=== PATIENT | male | born 1980 | race Caucasian/White ===

== ENCOUNTER 2019-02-26 07:31 | Emergency (ER) | payer MEDICAID ==
[~2019-02-26] VITALS: Ht 177.8 cm; Wt 109.1 kg
[2019-02-26 07:38] VITALS: Ht 177.8 cm; Wt 109.1 kg
[2019-02-26] MEDS ORDERED: SEROQUEL50 MG PO (07:39)
[2019-02-26] MEDS ORDERED: LITHIUM CARBON150 MG PO (07:39)
[2019-02-26] MEDS ORDERED: HYDROXYZINE HCL50 MG PO (07:40)
[2019-02-26 08:02] LABS: BASOPHILS 0.6 % (0-2); EOSINOPHILS 3.2 % (0-7); HEMATOCRIT 44.1 % (42.0-54.0); HEMOGLOBIN 15.6 g/dL (13.5-17.5); IMMATURE GRANULOCYTES 1.8 % (0-5); LYMPHOCYTES 30.5 % (15-50); MCH 29.2 pg (26.0-34.0); MCHC 35.4 g/dL (31.0-37.0); MCV 82.6 fL (80.0-100.0); NEUTROPHILS 57.9 % (40-80); PLATELET COUNT 221 10x3/uL (130-400); RBC 5.34 10x6/uL (4.20-6.10); RDW 15.7 % (11.5-14.5); WBC 8.9 10x3/uL (4.8-10.8)
[2019-02-26 08:18] LABS: APPEARANCE CLEAR (CLEAR); BACTERIA FEW /hpf (NONE SEEN); BILIRUBIN NEGATIVE (NEGATIVE); COLOR YELLOW (YELLOW); EPITHELIAL CELLS 0-5 /hpf (0-5); GLUCOSE NEGATIVE (NEGATIVE); HYALINE CAST OCC /lpf (NONE SEEN); KETONE NEGATIVE (NEGATIVE); MUCUS >1+ /lpf (NONE SEEN); NITRITE NEGATIVE (NEGATIVE); PROTEIN TRACE mg/dL (NEGATIVE); SPECIFIC GRAVITY 1.015 (1.005-1.020); UROBILINOGEN NORMAL (NORMAL); WHITE CELLS - URINE 0-5 /hpf (0-5)
[2019-02-26 08:19] LABS: RED CELLS - URINE RARE /hpf (0-5)
[2019-02-26 08:21] LABS: ALBUMIN 3.6 g/dL (3.4-5.0); ANION GAP 13.2 mmol/L (8-16); BILIRUBIN - TOTAL 0.44 mg/dL (0.2-1.3); CALCIUM 8.6 mg/dL (8.5-10.1); CARBON DIOXIDE 25.3 mmol/L (21.0-32.0); CREATININE - SERUM 1.2 mg/dL (0.6-1.3); POTASSIUM - SERUM 3.5 mmol/L (3.5-5.1)
[2019-02-26 09:11] LABS: UDS - AMPHET NEGATIVE QUAL (NEGATIVE); UDS - BARB NEGATIVE QUAL (NEGATIVE); UDS - BENZO NEGATIVE QUAL (NEGATIVE); UDS - COCAINE NEGATIVE QUAL (NEGATIVE); UDS - OPIATE NEGATIVE QUAL (NEGATIVE); UDS - PCP NEGATIVE QUAL (NEGATIVE); UDS - THC NEGATIVE QUAL (NEGATIVE)
--- NOTE | 2019-02-26 10:08 | NUR ---
DR. HAMMER NOTIFIED AND 1:1 SITTER OBSERVATION ORDERED. NOTIFIED CHARGE NURSE AND ATTENDING IN REGARDS TO ASSESSMENT FINDINGS. RESOURCES GIVEN AND SAFETY PLAN INITIATED.
[2019-02-26 13:59] VITALS: BP 141/92
== END 2019-02-26 14:01 ==
LOC: D.ER 07:31
PROVIDERS: Emergency Medicine
DX: F60.3 Borderline personality disorder (principal); F31.9 Bipolar disorder, unspecified; E74.39 Other disorders of intestinal carbohydrate absorption; R45.851 Suicidal ideations

== ENCOUNTER 2019-07-10 15:35 | Emergency (ER) | payer MEDICAID ==
[~2019-07-10] VITALS: Ht 177.8 cm; Wt 104.5 kg
[~2019-07-10 15:35] MED LIST: HYDROXYZINE HCL50 MG PO; LITHIUM CARBON150 MG PO; SEROQUEL50 MG PO
[2019-07-10 15:45] VITALS: Ht 177.8 cm; Wt 104.5 kg
[2019-07-10 15:54] LABS: APPEARANCE CLEAR (CLEAR); BILIRUBIN NEGATIVE (NEGATIVE); COLOR YELLOW (YELLOW); GLUCOSE NEGATIVE (NEGATIVE); KETONE NEGATIVE (NEGATIVE); NITRITE NEGATIVE (NEGATIVE); PROTEIN NEGATIVE (NEGATIVE); UROBILINOGEN NORMAL (NORMAL)
[2019-07-10 16:04] LABS: UDS - AMPHET NEGATIVE QUAL (NEGATIVE); UDS - BARB NEGATIVE QUAL (NEGATIVE); UDS - BENZO NEGATIVE QUAL (NEGATIVE); UDS - COCAINE NEGATIVE QUAL (NEGATIVE); UDS - OPIATE NEGATIVE QUAL (NEGATIVE); UDS - PCP NEGATIVE QUAL (NEGATIVE); UDS - THC NEGATIVE QUAL (NEGATIVE)
[2019-07-10 16:20] LABS: BASOPHILS 0.6 % (0-2); EOSINOPHILS 1.2 % (0-7); HEMATOCRIT 44.6 % (42.0-54.0); HEMOGLOBIN 15.4 g/dL (13.5-17.5); IMMATURE GRANULOCYTES 0.4 % (0-5); LYMPHOCYTES 33.8 % (15-50); MCH 30.1 pg (26.0-34.0); MCHC 34.5 g/dL (31.0-37.0); MCV 87.1 fL (80.0-100.0); MEAN PLATELET VOLUME 9.6 fL (7.4-10.4); MONOCYTES 8.7 % (2-11); NEUTROPHILS 55.3 % (40-80); PLATELET COUNT 228 10x3/uL (130-400); RBC 5.12 10x6/uL (4.20-6.10); RDW 13.2 % (11.5-14.5); WBC 7.2 10x3/uL (4.8-10.8)
[2019-07-10 16:35] LABS: ALBUMIN 4.1 g/dL (3.4-5.0); ALKALINE PHOSPHATASE 119 U/L (46-116); ALT (SGPT) 35 U/L (10-68); BILIRUBIN - TOTAL 0.42 mg/dL (0.2-1.3); CALC OSMOLALITY 285 mosm/kg (275-300); CALCIUM 9.1 mg/dL (8.5-10.1); CHLORIDE - SERUM 109 mmol/L (98-107); CREATININE - SERUM 1.1 mg/dL (0.6-1.3); MAGNESIUM - SERUM 2.1 mg/dL (1.8-2.4); POTASSIUM - SERUM 3.6 mmol/L (3.5-5.1); PROTEIN - SERUM 7.7 g/dL (6.4-8.2); SODIUM 144 mmol/L (136-145); UREA NITROGEN 11 mg/dL (7-18); eGFR NON AFRICAN AMERICAN 80 mL/min (90-120)
[2019-07-10 16:39] LABS: GLUCOSE 93 mg/dL (74-106)
[2019-07-10 20:10] VITALS: BP 122/84
== END 2019-07-10 20:11 ==
LOC: D.ER 15:35
PROVIDERS: Family Medicine
DX: R45.851 Suicidal ideations (principal)